=== PATIENT | female | born 1950 | race Native Hawaiian/Other Pacific Islander ===

== ENCOUNTER 2018-03-10 11:22 | Day surgery (SDC) | payer BC ==
[2018-03-07 15:15] VITALS: BMI 28.0
[2018-03-10] MEDS ORDERED: LIDOCAINE VISCOUS 2% ORAL/TOP 20 ML UNIT-DOSE CUP ONE (12:25)
[2018-03-10 12:56] VITALS: TEMP 97.6
[2018-03-10 15:24] VITALS: BP 102/68; PULSE 56
--- NOTE | 2018-03-10 18:15 | ECHO ---
Name: JAYLENE, SHAMA Exam:Transesophageal Echocardiogram Study Date: 03/10/2018 12:29 PM Age: 68 yrs Reason For Study: atrial fibrilation Height: 63 in Weight: 150 lb BSA: 1.7 m2 Procedure: A 2D transesophageal echocardiogram with Doppler and color flow Doppler was performed. Informed conse nt for Transesophageal Echocardiogram, and use of a contrast agent as needed, was obtained prior to the proc edure. The patient was brought to the endoscopy suite in a fasting state. An intravenous line was placed. A topical anesthetic agent was used for oropharangeal anesthesia. A bite block was inserted. IV concious sedati on was administered using propafol. A multifrequency, multiplane transesopheageal echocardiographic endoscop e was inserted and manipulated in the standard fashion to achieve multiplane views. The usual views were ob tained; basal, mid-esophageal, transgastric and aortic views. The patient's vital signs, including blood pres sure, heart rate, pulse oximetry and cardiac rhythm were monitored throughout the procedure and remained st able. The patient tolerated the procedure well without evidence of orophangeal or esophageal trauma. There were no complications. The patient was in atrial fibrillation with controlled ventricular rate during the exa m. Left Ventricle The left ventricle is normal in size. Left ventricular systolic function is normal. No regional wall motion abnormalities noted. Atria The left atrial size is normal. No thrombus is detected in the left atrial appendage. No left atrial mass or thrombus visualized. The interatrial septum is intact with no evidence for an atrial septal defect. I njection of contrast documented no interatrial shunt. Mitral Valve The mitral valve leaflets appear normal. There is no evidence of stenosis, fluttering, or prolapse. T here is mild mitral regurgitation. Tricuspid Valve The tricuspid valve is normal in structure and function. There is mild tricuspid regurgitation. Aortic Valve The aortic valve is trileaflet. The aortic valve opens well. The aortic valve is normal in structure and function. No aortic regurgitation is present. Pulmonic Valve The pulmonic valve is not well visualized. Mild pulmonic valvular regurgitation. Great Vessels Small atherosclerotic plaques are seen in distal aortic arch and proximal descending thoracic aorta. Pericardium/Pluera There is no pericardial effusion. Interpretation Summary The left ventricle is normal in size. Left ventricular systolic function is normal. No regional wall motion abnormalities noted. The left atrial size is normal. No thrombus is detected in the left atrial appendage. No left atrial mass or thrombus visualized. The interatrial septum is intact with no evidence for an atrial septal defect. Injection of contrast documented no interatrial shunt. The mitral valve leaflets appear normal. There is no evidence of stenosis, fluttering, or prolapse. There is mild mitral regurgitation. The tricuspid valve is normal in structure and function. There is mild tricuspid regurgitation. The aortic valve is trileaflet. The aortic valve opens well. The aortic valve is normal in structure and function. No aortic regurgitation is present. Mild pulmonic valvular regurgitation. Small atherosclerotic plaques are seen in distal aortic arch and proximal descending thoracic aorta There is no pericardial effusion. Proceed with synchronized cardioversion Danny Brooks MD 03/10/2018 06:14 PM
--- NOTE | 2018-03-10 18:23 | EKG ---
Test Reason : Blood Pressure : / mmHG Vent. Rate : 054 BPM Atrial Rate : 043 BPM P-R Int : 134 ms QRS Dur : 076 ms QT Int : 414 ms P-R-T Axes : 054 066 011 degrees QTc Int : 392 ms MARKED SINUS BRADYCARDIA WITH PREMATURE ATRIAL COMPLEXES LOW VOLTAGE QRS ABNORMAL ECG WHEN COMPARED WITH ECG OF 06-SEP-2014 11:31, NO SIGNIFICANT CHANGE WAS FOUND (THIS IS POST SYNCHRONIZED CARDIOVERSION TO SINUS RHYTHM FROM ATRIAL FIBRILLATION) Confirmed by DANNY MYERS MD ([id number]) on 03/10/2018 6:23:02 PM Referred By: Danny Myers Confirmed By:DANNY MYERS MD
== END 2018-03-10 14:35 | disposition home or self-care (01) ==
LOC: JASU-ENDO 11:22
PROVIDERS: ATTEND Internal Medicine Cardiovascular Disease
PROC: 5A2204Z Restoration of Cardiac Rhythm, Single (ICD-10-PCS; 2018-03-10)
PROC: B246ZZ4 Ultrasonography of Right and Left Heart, Transesophageal (ICD-10-PCS; principal; 2018-03-10 12:00)
DX: I48.91 Unspecified atrial fibrillation (principal)
CPT/HCPCS: 92960; 93005; 93010; 93312; 93325

== ENCOUNTER 2023-04-08 18:49 | Emergency (ER) | payer OTHER, BC ==
[2023-04-08 19:11] VITALS: BP 120/73; PULSE 98; RESP 18; TEMP 97.6; BMI 35.0
[2023-04-08 21:40] LABS: HEMATOCRIT 48.8 % (32.4-45.2); HEMOGLOBIN 16.6 GM/dL (10.7-15.3); MCH 29.5 pg (25.7-33.7); MCHC 33.9 g/dl (32.0-36.0); MEAN CELL VOLUME 87.2 fl (80-96); MEAN PLT VOLUME 7.1 fl (7.5-11.1); PLATELET COUNT 332 10^3/uL (134-434); RDW 13.7 % (11.6-15.6); WHITE BLOOD COUNT 3.9 K/mm3 (4.0-10.0)
[2023-04-08 22:16] LABS: POTASSIUM 3.7 mmol/L (3.5-5.1)
[2023-04-08 22:18] LABS: ALBUMIN 4.4 g/dl (3.4-5.0); BLOOD UREA NITROGEN 28.8 mg/dL (7-18); CALCIUM 9.7 mg/dL (8.5-10.1)
[2023-04-08 22:21] LABS: CREATININE 1.5 mg/dL (0.55-1.3)
[2023-04-08 22:23] LABS: TOT PROT 8.3 g/dl (6.4-8.2)
[2023-04-08 22:56] LABS: BILIRUBIN,TOTAL 0.5 mg/dL (0.2-1)
[2023-04-08 23:11] LABS: EPI CELLS 8 /uL (0-25.1); HYALINE CASTS 3 /uL (0-3.1); PH,URINE 5.5 (5.0-8.0); URINE APPEARANCE CLEAR; URINE BACTERIA 5 /uL (0-1359); URINE BILIRUBIN NEGATIVE (NEGATIVE); URINE COLOR YELLOW; URINE GLUCOSE (UA) NEGATIVE (NEGATIVE); URINE KETONE NEGATIVE (NEGATIVE); URINE LEUK ESTERASE NEGATIVE (NEGATIVE); URINE NITRITE NEGATIVE (NEGATIVE); URINE PROTEIN NEGATIVE (NEGATIVE); URINE RBC 17 /uL (0-23.9); URINE UROBILINOGEN 0.2 mg/dL (0.2-1.0); URINE WBC 18 /uL (0-25.8)
[2023-04-08] MEDS ORDERED: SODIUM CHLORIDE 0.9% 500 ML INFUS.BAG IV ONE (23:12)
== END 2023-04-09 00:31 | disposition home or self-care (01) ==
LOC: JER 18:49
DX: R42 Dizziness and giddiness (principal); J10.1 Influenza due to other identified influenza virus with other respiratory manifestations; R55 Syncope and collapse; W01.198A Fall on same level from slipping, tripping and stumbling with subsequent striking against other object, initial encounter; Y93.G3 Activity, cooking and baking; Z20.822 Contact with and (suspected) exposure to COVID-19
CPT/HCPCS: 0241U-QW; 36415; 70450-TC; 71046-TC-FY; 80053; 81003; 84484; 85025; 87086; 93005; 93010; 99285-25